=== PATIENT | male | born 1940 | race Caucasian/White ===

== ENCOUNTER 2023-02-20 10:30 | Outpatient (CLI) | payer MEDICARE, BC ==
[2023-02-20] MEDS ORDERED: Iopamidol 300 61% 100 ML VIAL FS ONE (10:31)
== END 2023-02-20 10:31 | disposition home or self-care (01) ==
LOC: CSHCT 10:30
PROVIDERS: ATTEND Internal Medicine Hematology & Oncology
DX: C18.2 Malignant neoplasm of ascending colon (principal); K80.20 Calculus of gallbladder without cholecystitis without obstruction; N28.1 Cyst of kidney, acquired; K57.90 Diverticulosis of intestine, part unspecified, without perforation or abscess without bleeding
CPT/HCPCS: 71260; 74177; 82565